=== PATIENT | female | born 1935 | race Caucasian/White ===

== ENCOUNTER 2023-06-17 20:35 | Inpatient (IN) | payer MEDICAID, MEDICARE ==
[~2023-06-17] VITALS: Ht 147.3 cm; Wt 46.7 kg
[2023-06-17] MEDS ORDERED: IV NORMAL SALINE 500 ML BAG IV ONE (21:00)
[2023-06-17 21:41] LABS: *BILIRUBIN,URIN NEGATIVE (NEGATIVE); *BLOOD, URINE NEGATIVE (NEGATIVE); *CLARITY,URINE CLEAR (CLEAR); *COLOR,URINE YELLOW (YELLOW); *KETONES,URINE NEGATIVE (NEGATIVE); *PROTEIN,URINE 1+ (NEGATIVE); *UROBILINOGEN,URINE 0.2 E.U./dl (NORMAL); LEUKOCYTE ESTERASE ,URINE NEGATIVE (NEGATIVE); NITRITE, URINE NEGATIVE (NEGATIVE)
[2023-06-17 21:43] LABS: UGLUCOSE 2+ (NEGATIVE)
[2023-06-17 21:48] LABS: POTASSIUM 4.3 mmol/L (3.5-5.1)
[2023-06-17 21:49] LABS: RED BLOOD CELL COUNT(AUTO) 3.29 MIL/uL (3.63-4.92)
[2023-06-17 21:53] LABS: BACTERIA,URINE FEW /HPF (NONE SEEN); RBC,URINE 0-3 /HPF (0-3); SQUAMOUS EPITHELIAL CELL,UR FEW /HPF (NONE SEEN)
[2023-06-17 21:55] LABS: LIPASE 55 U/L (16-77)
[2023-06-17 21:56] LABS: BASOPHILS # (AUTO) 0.1 K/UL (0.0-0.2); BASOPHILS % (AUTO) 0.4 % (0.0-2.0); DIFFERENTIAL COMMENT 1; EOSINOPHILS # (AUTO) 0.2 K/uL (0.0-0.7); HEMOGLOBIN 9.7 g/dL (10.9-14.3); LYMPHOCYTES # (AUTO) 1.2 K/uL (0.8-4.8); LYMPHOCYTES % (AUTO) 5.5 % (20.5-51.5); MEAN CORPUSCULAR HEMOGLOBIN 29.4 uug (24.7-32.8); MEAN CORPUSCULAR HGB CONC 32 g/dL (32.3-35.6); MEAN CORPUSCULAR VOLUME 91.2 fL (75.5-95.3); MONOCYTES # (AUTO) 1.1 K/uL (0.1-1.30); MONOCYTES % (AUTO) 4.8 % (0.0-11.0); NEUTROPHILS # (AUTO) 19.5 K/uL (1.8-8.9); NEUTROPHILS % (AUTO) 88.3 % (38.5-71.5); PLATELET COUNT (AUTO) 451 K/uL (179-408)
[2023-06-17 22:00] LABS: ALBUMIN 3.5 g/dL (3.4-5.0); BILIRUBIN,TOTAL 0.5 mg/dL (0.2-1.0); MAGNESIUM 2.3 mg/dL (1.8-2.4); TOTAL PROTEIN, SERUM 7.5 g/dL (6.4-8.2)
[2023-06-17] MEDS ORDERED: METRONIDAZOLE 500 MG/NS 100 ML PIGGYBACK IV ONE (22:15)
[2023-06-17] MEDS ORDERED: CEFEPIME HCL 1 G in IV DEXTROSE 5% 50 ML IV ONE (22:15)
[2023-06-17] MEDS ORDERED: CEFEPIME HCL 1 G VIAL ONE (22:16)
[2023-06-17] MEDS ORDERED: FUROSEMIDE 40 MG/4 ML VIAL IV ONE (23:45)
[2023-06-18 01:27] VITALS: BP 127/59; TEMP 97.7; O2SAT 97
[2023-06-18] MEDS ORDERED: INSULIN REGULAR, HUMAN 300 UNIT/3 ML VIAL SQ PRN ×2 (02:30→03:00)
[2023-06-18] MEDS ORDERED: MAGNESIUM HYDROXIDE 30 ML LIQUID UDC PO PRN ×2 (02:30→14:01)
[2023-06-18] MEDS ORDERED: ACETAMINOPHEN 325 MG TABLET PO PRN ×2 (02:30→14:00)
[2023-06-18] MEDS ORDERED: DEXTROSE 50% 50 ML DISP.SYRIN IV PRN ×3 (02:30→14:00)
[2023-06-18] MEDS ORDERED: ZOLPIDEM 5 MG TABLET PO PRN (02:30)
[2023-06-18] MEDS ORDERED: ONDANSETRON 4 MG/2 ML VIAL IV PRN (02:30)
[2023-06-18] MEDS ORDERED: REMEDY ESSENTIAL ZINC PASTE 113 GM TP PRN (02:30)
[2023-06-18] MEDS ORDERED: METRONIDAZOLE 500 MG/NS 100ML 100 ML IV ONE (04:14)
[2023-06-18] MEDS: METRONIDAZOLE 500 MG/NS 100ML 500 MG in PREMIXED 1 EACH IV SCH ×3 (05:06→21:53)
[2023-06-18] MEDS: BLOOD SUGAR DIAGNOSTIC 1 EACH STRIP VI SCH ×4 (06:21→21:55)
[2023-06-18 06:23] LABS: BASOPHILS # (AUTO) 0.1 K/UL (0.0-0.2); BASOPHILS % (AUTO) 0.8 % (0.0-2.0); EOSINOPHILS # (AUTO) 0.2 K/uL (0.0-0.7); EOSINOPHILS % (AUTO) 1.5 % (0.0-7.0); HEMATOCRIT 28.6 % (31.2-41.9); HEMOGLOBIN 9.2 g/dL (10.9-14.3); LYMPHOCYTES # (AUTO) 1.1 K/uL (0.8-4.8); LYMPHOCYTES % (AUTO) 10.6 % (20.5-51.5); MEAN CORPUSCULAR HEMOGLOBIN 29.4 uug (24.7-32.8); MEAN CORPUSCULAR HGB CONC 32 g/dL (32.3-35.6); MEAN CORPUSCULAR VOLUME 91.1 fL (75.5-95.3); MONOCYTES # (AUTO) 0.7 K/uL (0.1-1.30); MONOCYTES % (AUTO) 6.7 % (0.0-11.0); NEUTROPHILS # (AUTO) 8.6 K/uL (1.8-8.9); NEUTROPHILS % (AUTO) 80.4 % (38.5-71.5); PLATELET COUNT (AUTO) 422 K/uL (179-408); RED BLOOD CELL COUNT(AUTO) 3.14 MIL/uL (3.63-4.92); RED CELL DISTRIBUTION WIDTH 14.8 % (12.3-17.7); WHITE BLOOD COUNT (AUTO) 10.7 K/uL (3.8-11.8)
[2023-06-18 06:28] LABS: DIFFERENTIAL COMMENT 1
[2023-06-18 06:35] LABS: ALANINE AMINOTRANSFERASE 103 U/L (14-59); ALBUMIN 2.9 g/dL (3.4-5.0); ALKALINE PHOSPHATASE 104 U/L (50-136); ASPARTATE AMINOTRANSFERASE 71 U/L (15-37); BILIRUBIN,DIRECT 0.2 mg/dL (0.0-0.2); BILIRUBIN,TOTAL 0.5 mg/dL (0.2-1.0); CALCIUM 8.3 mg/dL (8.5-10.1); CARBON DIOXIDE 27 mmol/L (21-32); CHLORIDE 103 mmol/L (98-107); CHOLESTEROL 113 mg/dL (<200); GLUCOSE 114 mg/dL (74-106); HDL CHOLESTEROL 48 mg/dL (40-60); MAGNESIUM 1.9 mg/dL (1.8-2.4); PHOSPHOROUS 4.1 mg/dL (2.5-4.9); POTASSIUM 3.8 mmol/L (3.5-5.1); SODIUM SERUM 140 mmol/L (136-145); TOTAL PROTEIN, SERUM 6.7 g/dL (6.4-8.2); TRIGLYCERIDES 94 MG/DL (30-150); UREA NITROGEN, BLOOD 30 mg/dL (7-18)
[2023-06-18 06:45] LABS: THYROID STIMULATING HORMONE 2.188 mIU/mL (0.358-3.740)
[2023-06-18] MEDS ORDERED: BLOOD SUGAR DIAGNOSTIC 1 EACH STRIP VI SCH (07:30)
[2023-06-18] MEDS: FUROSEMIDE 20 MG/2 ML VIAL IV SCH ×2 (08:44→21:54)
[2023-06-18] MEDS ORDERED: PANTOPRAZOLE SODIUM 40 MG VIAL IV SCH (09:00)
[2023-06-18] MEDS ORDERED: ENOXAPARIN SODIUM 30 MG/0.3 ML DISP.SYRIN SUBCUT SCH (09:00)
[2023-06-18] MEDS: CEFEPIME HCL 1 G in IV DEXTROSE 5% 50 ML IV SCH ×2 (09:09→21:54)
[2023-06-18 11:52] VITALS: BP 130/79; TEMP 98.1; O2SAT 96
[2023-06-18] MEDS ORDERED: APIX5TAB PO (13:26)
[2023-06-18] MEDS ORDERED: METO200T49 PO ×2 (13:26→16:25)
[2023-06-18] MEDS ORDERED: METF-440 PO (13:26)
[2023-06-18] MEDS ORDERED: CLON0.1T PO (13:26)
[2023-06-18] MEDS ORDERED: FERR-56 PO (13:26)
[2023-06-18] MEDS ORDERED: MEMA5TAB42 PO (13:26)
[2023-06-18] MEDS ORDERED: DOCU100C36 PO (13:26)
[2023-06-18] MEDS ORDERED: OMEP40CA21 PO (13:26)
[2023-06-18] MEDS ORDERED: VITAMIND (13:26)
[2023-06-18] MEDS ORDERED: ASPI81TA31 PO (13:26)
[2023-06-18] MEDS ORDERED: LOSA1TAB39 PO (13:26)
[2023-06-18] MEDS ORDERED: CLON1PAT2 TD (13:26)
[2023-06-18] MEDS ORDERED: QUET25TA36 PO (13:26)
[2023-06-18] MEDS ORDERED: SPIR25TA6 PO (13:26)
[2023-06-18] MEDS ORDERED: DICL50TA9 PO (13:26)
[2023-06-18] MEDS ORDERED: HYDROCORTISONE 2.5% (13:26)
[2023-06-18] MEDS ORDERED: AMIO100T4 PO (13:26)
[2023-06-18] MEDS ORDERED: CALC500T52 PO (13:26)
[2023-06-18] MEDS ORDERED: APIXABAN 5 MG TABLET PO SCH ×3 (13:45→22:30)
[2023-06-18] MEDS: ASPIRIN 81 MG TAB.CHEW PO SCH (15:07)
[2023-06-18] MEDS: DOCUSATE SODIUM 100 MG CAPSULE PO SCH ×2 (15:08→16:50)
[2023-06-18 16:33] VITALS: BP_SYST 113; BP_SYST 131; BP_DIAS 56; BP_DIAS 87; TEMP 97.6; TEMP 98.1; O2SAT 98; O2SAT 99
[2023-06-18] MEDS ORDERED: ERGO50CA PO (16:37)
[2023-06-18] MEDS: FERROUS SULFATE 325 MG TABEC PO SCH (16:50)
[2023-06-18] MEDS: CALCIUM CARBONATE 500 MG TABLET PO SCH (17:31)
[2023-06-18] MEDS: MEMANTINE HCL 5 MG TABLET PO SCH (18:31)
[2023-06-18 20:15] VITALS: BP 114/64; TEMP 98.3; O2SAT 98
[2023-06-18] MEDS ORDERED: AMIODARONE HCL 200 MG TABLET PO SCH (21:00)
[2023-06-18] MEDS: QUETIAPINE FUMARATE 25 MG TABLET PO SCH (21:00)
[2023-06-18] MEDS ORDERED: CEFEPIME HCL 1 G VIAL ONE (21:44)
[2023-06-18] MEDS: MELATONIN 3 MG TABLET PO SCH (22:30)
[2023-06-19 00:01] VITALS: BP 119/53; TEMP 98.1; O2SAT 97
[2023-06-19 04:16] VITALS: BP 128/88; TEMP 98.3; O2SAT 98
[2023-06-19] MEDS: METRONIDAZOLE 500 MG/NS 100ML 500 MG in PREMIXED 1 EACH IV SCH ×3 (05:29→21:35)
[2023-06-19] MEDS: BLOOD SUGAR DIAGNOSTIC 1 EACH STRIP VI SCH ×4 (06:00→20:23)
[2023-06-19] MEDS: PANTOPRAZOLE SODIUM 40 MG TABLET.DR PO SCH (06:18)
[2023-06-19 07:05] LABS: BASOPHILS # (AUTO) 0.1 K/UL (0.0-0.2); EOSINOPHILS # (AUTO) 0.4 K/uL (0.0-0.7); EOSINOPHILS % (AUTO) 3.4 % (0.0-7.0); HEMATOCRIT 33.3 % (31.2-41.9); LYMPHOCYTES # (AUTO) 1.3 K/uL (0.8-4.8); LYMPHOCYTES % (AUTO) 11.1 % (20.5-51.5); MEAN CORPUSCULAR HEMOGLOBIN 29.8 uug (24.7-32.8); MEAN CORPUSCULAR HGB CONC 33 g/dL (32.3-35.6); MEAN CORPUSCULAR VOLUME 90.5 fL (75.5-95.3); MONOCYTES % (AUTO) 8.5 % (0.0-11.0); NEUTROPHILS # (AUTO) 9.1 K/uL (1.8-8.9); PLATELET COUNT (AUTO) 500 K/uL (179-408); RED BLOOD CELL COUNT(AUTO) 3.68 MIL/uL (3.63-4.92); RED CELL DISTRIBUTION WIDTH 15.2 % (12.3-17.7)
[2023-06-19 07:18] LABS: DIFFERENTIAL COMMENT 1
[2023-06-19 07:25] LABS: ALANINE AMINOTRANSFERASE 74 U/L (14-59); ALBUMIN 3.3 g/dL (3.4-5.0); ALKALINE PHOSPHATASE 112 U/L (50-136); ASPARTATE AMINOTRANSFERASE 39 U/L (15-37); BILIRUBIN,DIRECT 0.2 mg/dL (0.0-0.2); BILIRUBIN,TOTAL 0.4 mg/dL (0.2-1.0); CALCIUM 9.1 mg/dL (8.5-10.1); CARBON DIOXIDE 28 mmol/L (21-32); CHLORIDE 99 mmol/L (98-107); CREATININE 1.2 mg/dL (0.6-1.3); GLUCOSE 134 mg/dL (74-106); PHOSPHOROUS 4.3 mg/dL (2.5-4.9); POTASSIUM 3.4 mmol/L (3.5-5.1); SODIUM SERUM 139 mmol/L (136-145); TOTAL PROTEIN, SERUM 7.3 g/dL (6.4-8.2); UREA NITROGEN, BLOOD 30 mg/dL (7-18)
[2023-06-19] MEDS ORDERED: POTASSIUM CHLORIDE 20 MEQ POWDER PACKET GT ONE (08:15)
[2023-06-19] MEDS ORDERED: POTASSIUM CHLORIDE 20 MEQ TAB.PRT.SR PO ONE (08:30)
[2023-06-19] MEDS: SPIRONOLACTONE 25 MG TABLET PO SCH (08:40)
[2023-06-19] MEDS: DOCUSATE SODIUM 100 MG CAPSULE PO SCH ×2 (08:40→16:30)
[2023-06-19] MEDS: FUROSEMIDE 20 MG/2 ML VIAL IV SCH (08:40)
[2023-06-19] MEDS: CALCIUM CARBONATE 500 MG TABLET PO SCH (08:40)
[2023-06-19] MEDS: MEMANTINE HCL 5 MG TABLET PO SCH (08:40)
[2023-06-19] MEDS: ASPIRIN 81 MG TAB.CHEW PO SCH (08:40)
[2023-06-19] MEDS: FERROUS SULFATE 325 MG TABEC PO SCH ×2 (08:41→16:30)
[2023-06-19] MEDS ORDERED: APIXABAN 5 MG TABLET PO ONE (09:00)
[2023-06-19] MEDS: APIXABAN 2.5 MG TABLET PO SCH ×2 (09:10→20:26)
[2023-06-19] MEDS ORDERED: METOPROLOL SUCCINATE XL 50 MG TAB.SR.24H PO SCH (09:15)
[2023-06-19] MEDS: CEFEPIME HCL 1 G in IV DEXTROSE 5% 50 ML IV SCH ×2 (09:16→20:23)
[2023-06-19 11:14] VITALS: BP 103/59; TEMP 98.4; O2SAT 100
[2023-06-19] MEDS ORDERED: METOPROLOL SUCCINATE XL 50 MG TAB.SR.24H PO ONE (15:30)
[2023-06-19 16:06] VITALS: BP 116/67; TEMP 98.9
[2023-06-19] MEDS: INSULIN REGULAR, HUMAN 300 UNIT/3 ML VIAL SQ PRN (16:30)
[2023-06-19 20:00] VITALS: BP 124/74; TEMP 98.2; O2SAT 96
[2023-06-19] MEDS: MELATONIN 3 MG TABLET PO SCH (20:23)
[2023-06-19] MEDS: QUETIAPINE FUMARATE 25 MG TABLET PO SCH (20:23)
[2023-06-20] VITALS: BP 135/70; TEMP 98.9; O2SAT 96
[2023-06-20] MEDS ORDERED: METOPROLOL TARTRATE 5 MG/5 ML VIAL IVP ONE (02:45)
[2023-06-20 04:00] VITALS: BP 125/75; TEMP 97.2; O2SAT 95
[2023-06-20] MEDS: METOPROLOL SUCCINATE XL 50 MG TAB.SR.24H PO SCH (05:57)
[2023-06-20] MEDS: METRONIDAZOLE 500 MG/NS 100ML 500 MG in PREMIXED 1 EACH IV SCH ×3 (05:58→22:15)
[2023-06-20] MEDS: PANTOPRAZOLE SODIUM 40 MG TABLET.DR PO SCH (06:21)
[2023-06-20] MEDS: BLOOD SUGAR DIAGNOSTIC 1 EACH STRIP VI SCH ×4 (06:31→21:07)
[2023-06-20] MEDS ORDERED: BISACODYL 10 MG SUPP.RECT RC ONE (08:00)
[2023-06-20] MEDS: FERROUS SULFATE 325 MG TABEC PO SCH ×2 (08:37→16:51)
[2023-06-20] MEDS: CALCIUM CARBONATE 500 MG TABLET PO SCH (08:37)
[2023-06-20] MEDS: SPIRONOLACTONE 25 MG TABLET PO SCH (08:37)
[2023-06-20] MEDS: MEMANTINE HCL 5 MG TABLET PO SCH (08:37)
[2023-06-20] MEDS: DOCUSATE SODIUM 100 MG CAPSULE PO SCH ×2 (08:37→16:51)
[2023-06-20] MEDS: CEFEPIME HCL 1 G in IV DEXTROSE 5% 50 ML IV SCH ×2 (08:37→21:05)
[2023-06-20] MEDS: FUROSEMIDE 40 MG TABLET PO SCH (08:38)
[2023-06-20 08:39] LABS: BASOPHILS # (AUTO) 0.1 K/UL (0.0-0.2); BASOPHILS % (AUTO) 0.7 % (0.0-2.0); EOSINOPHILS # (AUTO) 0.3 K/uL (0.0-0.7); HEMATOCRIT 33.4 % (31.2-41.9); HEMOGLOBIN 10.9 g/dL (10.9-14.3); LYMPHOCYTES # (AUTO) 1.5 K/uL (0.8-4.8); LYMPHOCYTES % (AUTO) 10.5 % (20.5-51.5); MEAN CORPUSCULAR HEMOGLOBIN 29.8 uug (24.7-32.8); MEAN CORPUSCULAR HGB CONC 33 g/dL (32.3-35.6); MEAN CORPUSCULAR VOLUME 91.5 fL (75.5-95.3); MONOCYTES # (AUTO) 1.3 K/uL (0.1-1.30); MONOCYTES % (AUTO) 9.5 % (0.0-11.0); NEUTROPHILS # (AUTO) 10.8 K/uL (1.8-8.9); NEUTROPHILS % (AUTO) 77.3 % (38.5-71.5); PLATELET COUNT (AUTO) 504 K/uL (179-408); RED BLOOD CELL COUNT(AUTO) 3.65 MIL/uL (3.63-4.92)
[2023-06-20 08:41] LABS: DIFFERENTIAL COMMENT 1
[2023-06-20 08:59] LABS: CALCIUM 8.9 mg/dL (8.5-10.1); CARBON DIOXIDE 26 mmol/L (21-32); CHLORIDE 103 mmol/L (98-107); GLUCOSE 122 mg/dL (74-106); SODIUM SERUM 138 mmol/L (136-145); UREA NITROGEN, BLOOD 22 mg/dL (7-18)
[2023-06-20] MEDS ORDERED: FUROSEMIDE 20 MG TABLET PO SCH ×2 (09:00)
[2023-06-20] MEDS ORDERED: METOPROLOL SUCCINATE XL 50 MG TAB.SR.24H PO SCH (09:00)
[2023-06-20] MEDS: APIXABAN 2.5 MG TABLET PO SCH ×2 (09:06→21:07)
[2023-06-20] MEDS: DIGOXIN 500 MCG/2 ML AMP IV SCH ×3 (09:52→22:15)
[2023-06-20 11:49] VITALS: BP 145/75; TEMP 97.9; O2SAT 98
[2023-06-20 15:30] VITALS: BP 125/71; TEMP 97.8; O2SAT 98
[2023-06-20 20:00] VITALS: BP 132/62; TEMP 98; O2SAT 97
[2023-06-20] MEDS: QUETIAPINE FUMARATE 25 MG TABLET PO SCH (21:06)
[2023-06-20] MEDS: MELATONIN 3 MG TABLET PO SCH (21:07)
[2023-06-21] VITALS: BP 162/67; TEMP 97.6; O2SAT 98
[2023-06-21 04:00] VITALS: BP 177/57; TEMP 97.5; O2SAT 97
[2023-06-21] MEDS: METRONIDAZOLE 500 MG/NS 100ML 500 MG in PREMIXED 1 EACH IV SCH ×3 (05:28→21:07)
[2023-06-21] MEDS ORDERED: CLONIDINE HCL 0.1 MG TABLET PO ONE (06:15)
[2023-06-21] MEDS: PANTOPRAZOLE SODIUM 40 MG TABLET.DR PO SCH (06:36)
[2023-06-21] MEDS: BLOOD SUGAR DIAGNOSTIC 1 EACH STRIP VI SCH ×4 (07:03→20:27)
[2023-06-21 07:24] LABS: BASOPHILS # (AUTO) 0.1 K/UL (0.0-0.2); BASOPHILS % (AUTO) 0.7 % (0.0-2.0); EOSINOPHILS # (AUTO) 0.4 K/uL (0.0-0.7); EOSINOPHILS % (AUTO) 2.6 % (0.0-7.0); HEMATOCRIT 34.6 % (31.2-41.9); HEMOGLOBIN 11.5 g/dL (10.9-14.3); LYMPHOCYTES % (AUTO) 7.4 % (20.5-51.5); MEAN CORPUSCULAR HEMOGLOBIN 30.2 uug (24.7-32.8); MEAN CORPUSCULAR HGB CONC 33 g/dL (32.3-35.6); MEAN CORPUSCULAR VOLUME 91.3 fL (75.5-95.3); MONOCYTES # (AUTO) 1.4 K/uL (0.1-1.30); MONOCYTES % (AUTO) 10.5 % (0.0-11.0); NEUTROPHILS # (AUTO) 10.9 K/uL (1.8-8.9); NEUTROPHILS % (AUTO) 78.8 % (38.5-71.5); PLATELET COUNT (AUTO) 480 K/uL (179-408); RED BLOOD CELL COUNT(AUTO) 3.79 MIL/uL (3.63-4.92); WHITE BLOOD COUNT (AUTO) 13.8 K/uL (3.8-11.8)
[2023-06-21 07:29] LABS: DIFFERENTIAL COMMENT 1
[2023-06-21 08:08] LABS: ALANINE AMINOTRANSFERASE 47 U/L (14-59); ALBUMIN 3.2 g/dL (3.4-5.0); ALKALINE PHOSPHATASE 101 U/L (50-136); ASPARTATE AMINOTRANSFERASE 29 U/L (15-37); BILIRUBIN,TOTAL 0.6 mg/dL (0.2-1.0); CALCIUM 9.3 mg/dL (8.5-10.1); CARBON DIOXIDE 30 mmol/L (21-32); CHLORIDE 100 mmol/L (98-107); GLUCOSE 117 mg/dL (74-106); POTASSIUM 3.7 mmol/L (3.5-5.1); SODIUM SERUM 137 mmol/L (136-145); TOTAL PROTEIN, SERUM 7.5 g/dL (6.4-8.2); UREA NITROGEN, BLOOD 25 mg/dL (7-18)
[2023-06-21] MEDS ORDERED: POTASSIUM CHLORIDE 20 MEQ POWDER PACKET GT ONE (08:45)
[2023-06-21] MEDS ORDERED: DIGOXIN 125 MCG TABLET PO SCH (09:00)
[2023-06-21] MEDS: CEFEPIME HCL 1 G in IV DEXTROSE 5% 50 ML IV SCH ×2 (09:22→20:25)
[2023-06-21] MEDS: CALCIUM CARBONATE 500 MG TABLET PO SCH (09:22)
[2023-06-21] MEDS: MEMANTINE HCL 5 MG TABLET PO SCH (09:23)
[2023-06-21] MEDS: FERROUS SULFATE 325 MG TABEC PO SCH ×2 (09:23→16:49)
[2023-06-21] MEDS: FUROSEMIDE 40 MG TABLET PO SCH (09:23)
[2023-06-21] MEDS: SPIRONOLACTONE 25 MG TABLET PO SCH (09:23)
[2023-06-21] MEDS: DOCUSATE SODIUM 100 MG CAPSULE PO SCH ×2 (09:23→16:49)
[2023-06-21] MEDS: APIXABAN 2.5 MG TABLET PO SCH ×2 (09:35→20:25)
[2023-06-21] MEDS: METOPROLOL SUCCINATE XL 50 MG TAB.SR.24H PO SCH (11:10)
[2023-06-21 11:53] VITALS: BP 136/72; TEMP 97.8; O2SAT 99
[2023-06-21 16:00] VITALS: BP 122/65; TEMP 97.7; O2SAT 69
[2023-06-21] MEDS: GLUCERNA SHAKE 237 ML CAN PO SCH (16:49)
[2023-06-21] MEDS: INSULIN REGULAR, HUMAN 300 UNIT/3 ML VIAL SQ PRN (17:26)
[2023-06-21 20:00] VITALS: BP 131/70; TEMP 98.4; O2SAT 98
[2023-06-21] MEDS: QUETIAPINE FUMARATE 25 MG TABLET PO SCH (20:25)
[2023-06-21] MEDS: MELATONIN 3 MG TABLET PO SCH (20:26)
[2023-06-22] VITALS: BP 125/66; TEMP 98.2; O2SAT 98
[2023-06-22 05:41] VITALS: BP 133/77; TEMP 98; O2SAT 98
[2023-06-22] MEDS: METRONIDAZOLE 500 MG/NS 100ML 500 MG in PREMIXED 1 EACH IV SCH (06:11)
[2023-06-22] MEDS: PANTOPRAZOLE SODIUM 40 MG TABLET.DR PO SCH (06:12)
[2023-06-22] MEDS: BLOOD SUGAR DIAGNOSTIC 1 EACH STRIP VI SCH ×4 (06:13→21:38)
[2023-06-22] MEDS: GLUCERNA SHAKE 237 ML CAN PO SCH ×2 (08:26→17:23)
[2023-06-22] MEDS: PROTEIN SUPPLEMENT (PROSTAT) 30 ML LIQUID PO SCH (08:26)
[2023-06-22] MEDS: DOCUSATE SODIUM 100 MG CAPSULE PO SCH ×2 (10:34→17:21)
[2023-06-22] MEDS: METOPROLOL SUCCINATE XL 50 MG TAB.SR.24H PO SCH (10:35)
[2023-06-22] MEDS: MEMANTINE HCL 5 MG TABLET PO SCH (10:35)
[2023-06-22] MEDS: FUROSEMIDE 40 MG TABLET PO SCH (10:36)
[2023-06-22] MEDS: FERROUS SULFATE 325 MG TABEC PO SCH ×2 (10:36→17:21)
[2023-06-22] MEDS: APIXABAN 2.5 MG TABLET PO SCH ×2 (10:39→20:54)
[2023-06-22] MEDS: SPIRONOLACTONE 25 MG TABLET PO SCH (10:39)
[2023-06-22] MEDS: CALCIUM CARBONATE 500 MG TABLET PO SCH (10:43)
[2023-06-22] MEDS: CEFEPIME HCL 1 G in IV DEXTROSE 5% 50 ML IV SCH (10:52)
[2023-06-22 12:10] VITALS: BP 105/55; TEMP 97.8; O2SAT 98
[2023-06-22] MEDS: INSULIN REGULAR, HUMAN 300 UNIT/3 ML VIAL SQ PRN ×2 (12:35→21:49)
[2023-06-22 16:52] VITALS: BP 115/52; TEMP 97.8; O2SAT 98
[2023-06-22 20:20] VITALS: BP 151/60; TEMP 98.1; O2SAT 98
[2023-06-22] MEDS: MELATONIN 3 MG TABLET PO SCH (20:52)
[2023-06-22] MEDS: QUETIAPINE FUMARATE 25 MG TABLET PO SCH (20:53)
[2023-06-23 04:10] VITALS: BP 147/64; TEMP 97.5; O2SAT 99
[2023-06-23] MEDS: PANTOPRAZOLE SODIUM 40 MG TABLET.DR PO SCH (06:17)
[2023-06-23] MEDS: BLOOD SUGAR DIAGNOSTIC 1 EACH STRIP VI SCH ×2 (06:28→11:32)
[2023-06-23 06:57] LABS: BASOPHILS # (AUTO) 0.1 K/UL (0.0-0.2); EOSINOPHILS # (AUTO) 0.5 K/uL (0.0-0.7); EOSINOPHILS % (AUTO) 4.9 % (0.0-7.0); HEMATOCRIT 34.4 % (31.2-41.9); HEMOGLOBIN 11.2 g/dL (10.9-14.3); LYMPHOCYTES # (AUTO) 1.1 K/uL (0.8-4.8); LYMPHOCYTES % (AUTO) 10.1 % (20.5-51.5); MEAN CORPUSCULAR HEMOGLOBIN 29.7 uug (24.7-32.8); MEAN CORPUSCULAR HGB CONC 33 g/dL (32.3-35.6); MEAN CORPUSCULAR VOLUME 91.6 fL (75.5-95.3); MONOCYTES # (AUTO) 1.2 K/uL (0.1-1.30); MONOCYTES % (AUTO) 10.7 % (0.0-11.0); NEUTROPHILS # (AUTO) 7.9 K/uL (1.8-8.9); NEUTROPHILS % (AUTO) 73.3 % (38.5-71.5); PLATELET COUNT (AUTO) 444 K/uL (179-408); RED BLOOD CELL COUNT(AUTO) 3.75 MIL/uL (3.63-4.92); RED CELL DISTRIBUTION WIDTH 14.7 % (12.3-17.7); WHITE BLOOD COUNT (AUTO) 10.8 K/uL (3.8-11.8)
[2023-06-23 07:04] LABS: DIFFERENTIAL COMMENT 1
[2023-06-23 07:17] LABS: CALCIUM 9.4 mg/dL (8.5-10.1); CARBON DIOXIDE 29 mmol/L (21-32); CHLORIDE 105 mmol/L (98-107); CREATININE 0.9 mg/dL (0.6-1.3); DIGOXIN 1.5 ng/mL (0.9-2.0); GLUCOSE 141 mg/dL (74-106); SODIUM SERUM 142 mmol/L (136-145); UREA NITROGEN, BLOOD 29 mg/dL (7-18)
[2023-06-23 08:00] VITALS: BP 144/66; TEMP 98.1; O2SAT 97
[2023-06-23] MEDS: FERROUS SULFATE 325 MG TABEC PO SCH (08:36)
[2023-06-23] MEDS: SPIRONOLACTONE 25 MG TABLET PO SCH (08:37)
[2023-06-23] MEDS: DOCUSATE SODIUM 100 MG CAPSULE PO SCH (08:37)
[2023-06-23] MEDS: CALCIUM CARBONATE 500 MG TABLET PO SCH (08:37)
[2023-06-23] MEDS: METOPROLOL SUCCINATE XL 50 MG TAB.SR.24H PO SCH (08:37)
[2023-06-23] MEDS: MEMANTINE HCL 5 MG TABLET PO SCH (08:37)
[2023-06-23] MEDS: APIXABAN 2.5 MG TABLET PO SCH (08:38)
[2023-06-23] MEDS: GLUCERNA SHAKE 237 ML CAN PO SCH (08:38)
[2023-06-23] MEDS: PROTEIN SUPPLEMENT (PROSTAT) 30 ML LIQUID PO SCH (08:39)
[2023-06-23] MEDS ORDERED: FUROSEMIDE 20 MG TABLET PO SCH (09:00)
[2023-06-23] MEDS ORDERED: DIGOXIN 125 MCG TABLET PO SCH (09:00)
[2023-06-23] MEDS ORDERED: FUROSEMIDE 40 MG TABLET PO SCH (09:00)
[2023-06-23] MEDS: CEFEPIME HCL 1 G in IV DEXTROSE 5% 50 ML IV SCH (11:17)
[2023-06-23 11:51] VITALS: BP 130/91; TEMP 98.9; O2SAT 98
[2023-06-23] MEDS ORDERED: AMOX-430 PO (12:04)
[2023-06-23] MEDS ORDERED: APIX2.5T PO (12:04)
[2023-06-23] MEDS ORDERED: PANT40TA2 PO (12:04)
[2023-06-23] MEDS ORDERED: ACID1TAB4 PO (12:04)
[2023-06-23] MEDS ORDERED: FURO-152 PO (12:04)
[2023-06-23] MEDS ORDERED: QUET25TA PO (12:04)
[2023-06-23] MEDS ORDERED: SPIR25TA6 PO (12:04)
[2023-06-23] MEDS ORDERED: METO200T49 PO (12:04)
[2023-06-23] MEDS ORDERED: DIGO125T PO (12:04)
[2023-06-23] MEDS: INSULIN REGULAR, HUMAN 300 UNIT/3 ML VIAL SQ PRN (12:08)
[2023-06-25] MEDS ORDERED: DIGOXIN 125 MCG TABLET PO SCH (09:00)
== END 2023-06-23 14:35 | disposition home health service (06) | DRG 248 ==
LOC: ER 20:37 → TELE3 06-18 00:53 → MEDSURG3 06-22 10:18 → MED 06-22 17:16
PROVIDERS: ADMIT Nurse Practitioner Acute Care; ATTEND Nurse Practitioner Acute Care
DX: A04.9 Bacterial intestinal infection, unspecified (principal); G93.41 Metabolic encephalopathy; I50.33 Acute on chronic diastolic (congestive) heart failure; E44.0 Moderate protein-calorie malnutrition; I48.92 Unspecified atrial flutter; E88.09 Other disorders of plasma-protein metabolism, not elsewhere classified; N39.0 Urinary tract infection, site not specified; I48.91 Unspecified atrial fibrillation; E11.9 Type 2 diabetes mellitus without complications; B96.89 Other specified bacterial agents as the cause of diseases classified elsewhere; I11.0 Hypertensive heart disease with heart failure; K74.60 Unspecified cirrhosis of liver; G30.9 Alzheimer's disease, unspecified; I05.0 Rheumatic mitral stenosis; F02.80 Dementia in other diseases classified elsewhere, unspecified severity, without behavioral disturbance, psychotic disturbance, mood disturbance, and anxiety; Z68.20 Body mass index [BMI] 20.0-20.9, adult; Z79.01 Long term (current) use of anticoagulants; D64.9 Anemia, unspecified; K59.00 Constipation, unspecified; R26.2 Difficulty in walking, not elsewhere classified; I25.10 Atherosclerotic heart disease of native coronary artery without angina pectoris; R59.0 Localized enlarged lymph nodes
CPT/HCPCS: 36415; 71045; 71250; 83605; 83690; 83735; 84100; 84443; 84484; 85025; 87040; 93005; 93307; A4606; A4663; C9113; G0378; J0692; J1160; J1650; J1815; J1940; J3490; J7040